=== PATIENT | female | born 1945 | race Caucasian/White ===

== ENCOUNTER 2017-07-22 08:41 | Inpatient (IN) | payer MEDICARE, OTHER ==
[~2017-07-22] VITALS: Ht 165.1 cm; Wt 98.0 kg
[~2017-07-22 08:41] MED LIST: BIOT1CAP2 PO; CETI10 PO; DICL75TA PO; EFFE150C PO; KELP1TAB PO; LEVO150T7 PO; LIPI10TA PO; MAGN250T11 PO; MELA10TA PO; OXYC1TAB63 PO; PREGPOW TOPICAL; PROG100C PO; RED600TA PO; RESVTAB PO; UBID200C3 PO; VITA10004 SL; VITA2000 PO; VITA500T83 PO
[2017-07-22] MEDS ORDERED: METOPROLOL TARTRATE 25 MG TAB PO PRN (09:15)
[2017-07-22] MEDS ORDERED: LACTATED RINGER'S 1000 ML IV PRN (09:15)
[2017-07-22] MEDS ORDERED: VANCOMYCIN 1000 MG/NS 250 ML (for <70 kg) IV SCH ×2 (09:15)
[2017-07-22] MEDS ORDERED: CHLORHEXIDINE GLUCONATE 2 % 1 PACK (2 CLOTHS) TOPICAL PRN (09:15)
[2017-07-22] MEDS ORDERED: CHLORHEXIDINE GLUCONATE 4% SOLN 120 ML BTL TOPICAL SCH (09:15)
[2017-07-22] MEDS ORDERED: POVIDONE IODINE 5% (ANTISEPSIS KIT) 4 APPLICATIONS EACH NARE PRN (09:15)
[2017-07-22] MEDS ORDERED: ROPIVACAINE PERI-ARTICULAR INJECTION. P-ARTICULR SCH ×5 (09:15)
[2017-07-22] MEDS ORDERED: SODIUM CHLORID 0.9% 500 ML IV PRN (09:15)
[2017-07-22 09:23] LABS: BACTERIA, URINE OCC /hpf; BILIRUBIN, URINE NEG (NEG); BLOOD, URINE NEG (NEG); GLUCOSE,URINE NEG (NEG); KETONE, URINE NEG (NEG); MUCUS URINE FEW /lpf (OCC); NITRITE,URINE NEG (NEG); PH, URINE 6.5 (5.0-8.5); SQUAMOUS EPITHELIAL CELL URINE 9 /hpf (0-5); TRANSITIONAL EPI CELLS, URINE <1 /hpf; URINE COLOR YELLOW (YELLW/STRAW); URINE LEUKOCYTE ESTERASE NEG (NEG)
[2017-07-22] MEDS ORDERED: CYAN100025 IM (09:25)
[2017-07-22 09:56] VITALS: PULSE 60
[2017-07-22] MEDS ORDERED: MIDAZOLAM HCL 2 MG/2 ML VIAL ONE (10:36)
[2017-07-22] MEDS ORDERED: MIDAZOLAM HCL 2 MG/2 ML VIAL IV ONE (11:15)
[2017-07-22] MEDS ORDERED: fentaNYL CITRATE 250 MCG/5 ML AMP ONE (11:53)
[2017-07-22] MEDS ORDERED: ACETAMINOPHEN 1000 MG/100 ML 100 ML IV ONE (11:53)
[2017-07-22] MEDS ORDERED: PHENYLEPH/NS 1000 MCG/10 ML SYR IV ONE (12:00)
[2017-07-22] MEDS ORDERED: GLYCOPYRROLATE 1 MG/5 ML SYRINGE IV PUSH ONE (12:00)
[2017-07-22] MEDS ORDERED: ePHEDrine/NS 25 MG/5 ML SYRINGE IV ONE (12:00)
[2017-07-22] MEDS ORDERED: NEOSTIGMINE 5 MG/5 ML SYRINGE IV PUSH ONE (12:00)
[2017-07-22] MEDS ORDERED: LIDOCAINE HCL 1% PF 5 ML SYRINGE OTHER ONE (12:00)
[2017-07-22] MEDS ORDERED: PROPOFOL 200 MG/20 ML AMP IV ONE (12:00)
[2017-07-22] MEDS ORDERED: ROCURONIUM INJ 50 MG/5 ML SYRINGE IV PUSH ONE (12:00)
[2017-07-22] MEDS ORDERED: ceFAZolin INJ 1,000 MG VIAL IV ONE (12:00)
[2017-07-22] MEDS ORDERED: ONDANSETRON HCL 4 MG/2 ML VIAL IV ONE (12:00)
[2017-07-22] MEDS ORDERED: LACTATED RINGER'S 1000 ML INJ 1,000 ML IV ONE (12:00)
[2017-07-22] MEDS ORDERED: ceFAZolin 2 GM PREMIX 50 ML IV ONE (12:00)
[2017-07-22] MEDS ORDERED: GENTAMICIN SULFATE 80 MG/2 ML VIAL ONE (12:11)
[2017-07-22] MEDS ORDERED: DO NOT ADM ANY ANTICOAGULANT DRUGS PRN (15:08)
[2017-07-22] MEDS ORDERED: MORPHINE SULFATE 8 MG/ML INJ IV PUSH PRN (15:15)
[2017-07-22] MEDS ORDERED: ONDANSETRON HCL 4 MG/2 ML VIAL IVP PRN (15:15)
[2017-07-22] MEDS ORDERED: Post-op Orders (for Pharmacy) XX ONE (15:15)
[2017-07-22] MEDS ORDERED: ZOLPIDEM TARTRATE 5 MG TAB PO PRN (15:15)
[2017-07-22] MEDS ORDERED: ACETAMINOPHEN/HYDROcodone 325 MG/7.5 MG TAB PO PRN (15:15)
[2017-07-22] MEDS ORDERED: ALUMINUM/MAGNESIUM/SIMETH 30 ML CUP PO PRN (15:15)
--- NOTE | 2017-07-22 15:21 | HHI.FF ---
Face to Face Verification Diagnosis: (1) Osteoarthritis of right knee Physical Therapy Gait training Knee: Total knee, Protocol: Right, Full weight bearing Right LE Weight Bearing: WB as tolerated Left LE Weight Bearing: WB as tolerated Nursing RN: 3 days/week x 2 weeks Nursing: Dressing changes (clean incision with alcohol and apply dry sterile dressing ) Additional Instructions Aspirin 81 mg bid x 4 weeks dvt prop I have seen patient Shayy Lowery on 07/22/17. My clinical findings support the need for the requested home health care services because: Deconditioned w/ increased weakness I certify that my clinical findings support that this patient is homebound because: Post-op weakness Andrea Royal MD Jul 22, 2017 15:21
[2017-07-22] MEDS ORDERED: CPMMACHINE (15:22)
[2017-07-22] MEDS ORDERED: WALKER WHEELS/F1 MIS (15:22)
[2017-07-22] MEDS ORDERED: *morphine SULFATE 4 MG/ML PERIprocedure ONLY ONE ×2 (15:26→15:37)
--- NOTE | 2017-07-22 15:41 | MP ---
cc: Andrea Royal MD, Michael Marini, Domenic DATE OF OPERATION: 07/22/2017 PREOPERATIVE DIAGNOSIS: Right knee osteoarthritis. POSTOPERATIVE DIAGNOSIS: Right knee osteoarthritis. PROCEDURE: Right total knee arthroplasty. SURGEON: Andrea Royal MD DOORKEEPER: Damaris Jones PA-C. ANESTHESIA: General, adductor canal regional block, intraarticular block. DRAIN: Two. COMPLICATIONS: None. ESTIMATED BLOOD LOSS: 25 mL TOURNIQUET TIME: 51 minutes at 250 mmHg. CONDITION: Stable. PLAN OF ACTIVITY: Per orders. PROCEDURE: My assistant press operator, Damaris Jones PA-C, was present for the entire surgical case. She was medically necessary for the entire case due to the complexity of case and to facilitate the performance of the procedure. The STATE ASSESSED PROPERTIES DIRECTOR was at the back table and not of skill set for this case to manipulate the instruments, e.g., the multiple different types of soft tissue retractors, trial implants and permanent implants. The patient was brought in the operating room and had satisfactory anesthesia by department of anesthesia. Right lower extremity was then prepped and draped in the usual sterile manner. The extremity was exsanguinated by Daniel wrap, by elevation, tourniquet inflated to 250 mmHg. A small anterior exposure of the knee was made. Paramedian capsulotomy was performed. The patient was found to have tricompartment osteoarthritis involving the knee. The remaining portion of the medial and lateral meniscus removed. The anterior cruciate ligament was removed. The posterior cruciate ligament was preserved. Prepatellar fat pad was surgically excised. Using the [employer] Cucinial[employer]uard total knee arthroplasty system, IM guide was used in the distal femur to accept a 70 mm femoral component, 5-degree valgus cut to the proximal tibia, extramedullary guide was used to accept a 75 mm tibial component. Appropriate balancing the knee was made with flexion, extension with the 10 mm insert, which was felt to be very satisfactory. Undersurface of patella was removed to accept a 31 mm patellar prosthesis. All trial components were removed in preparation for cementing. First, the tibial component was cemented, followed by the femoral component, then the patellar component. All excess bone cement was removed. The bone cement was allowed to harden for 10-1/2 minutes. A 10 mm x 75 mm polyethylene plastic was used and assembled onto the tibial tray. The knee was irrigated with 4000 mL of sterile saline antibiotic solution. The knee also was injected with 100 mL of local anesthesia provided by pharmacy department. Tourniquet was deflated. The wound itself was dry. It was closed over 2 Hemovac drains. The wound was closed in routine manner. The extensor mechanism capsule was repaired using #2 Ti-Cron suture, subcuticular layers with 0 Vicryl and 2-0 Vicryl, skin approximated with skin claribel. Sterile dressings were applied. The patient tolerated the procedure well and brought to the recovery room in stable and satisfactory condition. MD DANIEL Rios/FESTUS , 03:11 PM , 03:39 PM [facility]
[2017-07-22] MEDS ORDERED: *morphine SULFATE 10 MG/ML PERIprocedure ONLY ONE (15:48)
[2017-07-22] MEDS: LACTATED RINGER'S 1000 ML INJ 1,000 ML IV SCH (16:00)
[2017-07-22] MEDS ORDERED: HYDROmorphone HCL PF 2 MG/ML VIAL ONE ×2 (16:07→17:09)
--- NOTE | 2017-07-22 16:16 | RADRPT ---
EXAM DATE/TIME: 07/22/2017 15:28 [facility] COMPARISON: No previous studies available for comparison. INDICATIONS : Post op right knee. MEDICAL HISTORY : None. SURGICAL HISTORY : None. ENCOUNTER: Initial ACUITY: 1 day PAIN SCORE: Non-responsive. LOCATION: Right knee. FINDINGS: Postsurgical features of right knee arthroplasty. Arthroplasty components are in anatomic alignment. No significant acute bony fracture. Immediate postsurgical soft tissue features. CONCLUSION: 1. Status post right knee arthroplasty in anatomic alignment without significant acute bony fracture. Janusz Persaud MD on July 22, 2017 at 16:13 Board Certified Radiologist. This report was verified electronically.
[2017-07-22] MEDS ORDERED: *MEPERIDINE 25 MG INJ VIAL PERIprocedural Use ONLY ONE (17:28)
[2017-07-22] MEDS ORDERED: HYDROmorphone HCL PF 2 MG/ML VIAL IV PUSH PRN (17:45)
[2017-07-22] MEDS ORDERED: HYDROmorphone HCL PF 2 MG/ML VIAL IV PUSH ONE ×2 (18:30)
[2017-07-22] MEDS: VENLAFAXINE HCL XR 75 MG CAP PO SCH (19:42)
[2017-07-22 20:00] VITALS: BP 127/52; PULSE 66; RESP 18; TEMP 96.4; O2SAT 97
[2017-07-22] MEDS ORDERED: PROGESTERONE PO SCH (21:00)
[2017-07-22] MEDS ORDERED: PROGESTERONE MICRONIZED 100 MG PO SCH (21:00)
[2017-07-22] MEDS: ACETAMINOPHEN/HYDROcodone 325 MG/7.5 MG TAB PO PRN (23:15)
[2017-07-23] VITALS: BP 132/63; PULSE 71; RESP 18; TEMP 96.5; O2SAT 98
[2017-07-23] MEDS: ACETAMINOPHEN/HYDROcodone 325 MG/7.5 MG TAB PO PRN ×2 (03:49→08:18)
[2017-07-23 04:00] VITALS: BP 104/55; PULSE 72; RESP 18; TEMP 98.1; O2SAT 93
[2017-07-23] MEDS: LACTATED RINGER'S 1000 ML INJ 1,000 ML IV SCH (04:09)
[2017-07-23 05:11] LABS: HEMATOCRIT 33.7 % (35.0-46.0); HEMOGLOBIN 11.4 GM/DL (11.6-15.3)
[2017-07-23] MEDS ORDERED: LEVOTHYROXINE SODIUM 150 MCG TAB PO SCH (06:00)
--- NOTE | 2017-07-23 06:50 | PD.ORT.PN ---
Subjective Subjective Remarks POD#1 R TKR Patient comfortable;she wants to go home today No chest pain;no sob Objective Vitals Vital Signs Date Time Temp Pulse Resp B/P (MAP) Pulse Ox O2 Delivery O2 Flow Rate FiO2 07/23/17 04:00 98.1 72 18 104/55 (71) 93 07/23/17 00:00 96.5 71 18 132/63 (86) 98 07/22/17 20:00 96.4 66 18 127/52 (77) 97 07/22/17 19:00 98.1 78 12 153/71 (98) 98 Nasal Cannula 2 07/22/17 18:00 80 12 119/66 (83) 94 Nasal Cannula 2 07/22/17 17:15 68 12 114/53 (73) 99 Nasal Cannula 3 07/22/17 17:00 76 12 94/50 (65) 99 Nasal Cannula 3 07/22/17 16:45 75 12 90/44 (59) 100 Nasal Cannula 3 07/22/17 16:30 70 12 119/52 (74) 97 Nasal Cannula 3 07/22/17 16:15 70 12 133/58 (83) 100 Nasal Cannula 3 07/22/17 16:00 97.7 72 12 141/59 (86) 100 Nasal Cannula 4 07/22/17 15:45 71 12 148/68 (94) 100 Nasal Cannula 4 07/22/17 15:30 76 12 160/71 (100) 100 Nasal Cannula 4 07/22/17 15:15 80 12 144/76 (98) 100 Nasal Cannula 4 07/22/17 15:10 97.0 79 12 132/86 (101) 100 Nasal Cannula 4 07/22/17 09:57 96 Nasal Cannula 2 07/22/17 09:56 60 07/22/17 09:33 99.3 58 16 140/70 (93) 94 I/O 07/22/17 07/22/17 07/22/17 07/23/17 07/23/17 07/23/17 07:00 15:00 23:00 07:00 15:00 23:00 Intake Total 1400 ml 100 ml Output Total 25 ml 0 ml 100 ml Balance 1375 ml 100 ml -100 ml Intake IV Total 100 ml Other 1400 ml Output Drainage Total 0 ml 100 ml Estimated Blood Loss 25 ml # Voids 1 1 # Bowel Movements 0 Result Diagram: 07/23/17 0420 Imaging Last 24 hours Impressions Knee X-Ray 07/22/17 1512 Signed Impressions: Service Date/Time: Saturday, July 22, 2017 15:28 - CONCLUSION: 1. Status post right knee arthroplasty in anatomic alignment without significant acute bony fracture. Janusz Persaud MD Objective Remarks N/V intact No calf tenderness;neg tim's Assessment & Plan Assessment and Plan Ortho stable D/C home today Aspirin EC 81 mg x 4 weeks,TEDS for DVT prophylaxsis [facility] RN/PT Andrea Royal MD Jul 23, 2017 06:50
[2017-07-23 08:00] VITALS: BP 120/59; PULSE 75; RESP 18; TEMP 97.3; O2SAT 95
[2017-07-23] MEDS: VENLAFAXINE HCL XR 75 MG CAP PO SCH (08:17)
[2017-07-23] MEDS ORDERED: CETIRIZINE HCL 10 MG TAB PO SCH (09:00)
[2017-07-23] MEDS ORDERED: ASPIRIN EC 81 MG TABEC PO SCH (09:00)
[2017-07-23] MEDS ORDERED: HYDR-3288 PO (09:10)
--- NOTE | 2017-07-23 16:14 | EKG ---
Date Performed: 07/22/2017 Time Performed: 11:11:07 PTAGE: 72 years EKG: SINUS BRADYCARDIA LEFT AXIS DEVIATION MINIMAL VOLTAGE CRITERIA FOR LVH, CONSIDER NORMAL LATOYA IANT NONSPECIFIC T-WAVE ABNORMALITY ABNORMAL ECG PREVIOUS TRACING : 05/18/2015 11.53 No significant change from previous tracing noted. DOCTOR: Luiz Johnson Interpretating Date/Time 07/23/2017 16:12:15
== END 2017-07-23 11:31 | disposition home health service (06) | DRG 470 ==
LOC: HSDC 08:41 → EDSTATUS 14:30 → HSDI 15:25 → N06A 19:25
PROVIDERS: ADMIT Orthopaedic Surgery Orthopaedic Surgery of the Spine; ATTEND Orthopaedic Surgery Orthopaedic Surgery of the Spine
PROC: 0SRC0J9 Replacement of Right Knee Joint with Synthetic Substitute, Cemented, Open Approach (ICD-10-PCS; 2017-07-22)
PROC: 3E0T3BZ Introduction of Anesthetic Agent into Peripheral Nerves and Plexi, Percutaneous Approach (ICD-10-PCS; principal; 2017-07-22 13:11)
DX: M17.11 Unilateral primary osteoarthritis, right knee (principal); G62.9 Polyneuropathy, unspecified; M54.9 Dorsalgia, unspecified; E03.9 Hypothyroidism, unspecified; E78.00 Pure hypercholesterolemia, unspecified; M16.11 Unilateral primary osteoarthritis, right hip; M19.071 Primary osteoarthritis, right ankle and foot; E66.9 Obesity, unspecified; Z68.36 Body mass index [BMI] 36.0-36.9, adult
CPT/HCPCS: 73560; 81001; 85014; 85018; 86850; 86900; 86901; 86920; 93005; 94150; C1776; J0131; J0690; J0735; J1170; J1580; J1885; J2175; J2250; J2270; J2370; J2405; J2710; J2795; J3010; J3370; J7050; J7120; L1830